=== PATIENT | male | born 1970 | race Caucasian/White ===

== ENCOUNTER 2016-11-18 15:58 | Emergency (ER) | payer MEDICAID ==
[2016-11-18 16:34] LABS: BASOPHILS 0.4 % (0-2); EOSINOPHILS 5.3 % (0-7); HEMATOCRIT 42.4 % (42.0-54.0); HEMOGLOBIN 14.2 g/dL (13.5-17.5); IMMATURE GRANULOCYTES 0.1 % (0-5); LYMPHOCYTES 32.3 % (15-50); MCH 30.1 pg (26.0-34.0); MCHC 33.5 g/dL (31.0-37.0); MCV 89.8 fL (80.0-100.0); MEAN PLATELET VOLUME 10.5 fL (7.4-10.4); MONOCYTES 6.3 % (2-11); NEUTROPHILS 55.6 % (40-80); PLATELET COUNT 201 10x3/uL (130-400); RBC 4.72 10x6/uL (4.20-6.10); RDW 14.8 % (11.5-14.5); WBC 8.4 10x3/uL (4.8-10.8)
[2016-11-18 16:47] LABS: APTT 24.5 SECONDS (22.8-39.4)
[2016-11-18 16:58] LABS: ALBUMIN 3.6 g/dL (3.4-5.0); ANION GAP 14.3 mmol/L (8-16); BILIRUBIN - TOTAL 0.23 mg/dL (0.2-1.3); CALCIUM 8.6 mg/dL (8.5-10.1); CARBON DIOXIDE 23.4 mmol/L (21.0-32.0); CREATININE - SERUM 1.7 mg/dL (0.6-1.3); POTASSIUM - SERUM 3.7 mmol/L (3.5-5.1); PROTEIN - SERUM 6.9 g/dL (6.4-8.2)
== END 2016-11-18 19:30 | disposition home or self-care (01) ==
LOC: D.ER 15:58
PROVIDERS: Nurse Practitioner Acute Care
DX: S81.012A Laceration without foreign body, left knee, initial encounter (principal); W29.3XXA Contact with powered garden and outdoor hand tools and machinery, initial encounter; Y93.89 Activity, other specified; Y92.89 Other specified places as the place of occurrence of the external cause; F17.200 Nicotine dependence, unspecified, uncomplicated; F12.90 Cannabis use, unspecified, uncomplicated

== ENCOUNTER 2016-11-20 11:57 | Emergency (ER) | payer MEDICAID ==
[2016-11-20 12:53] LABS: BASOPHILS 0.1 % (0-2); EOSINOPHILS 3.5 % (0-7); HEMATOCRIT 44.1 % (42.0-54.0); HEMOGLOBIN 14.6 g/dL (13.5-17.5); IMMATURE GRANULOCYTES 0.2 % (0-5); LYMPHOCYTES 26.3 % (15-50); MCH 29.7 pg (26.0-34.0); MCHC 33.1 g/dL (31.0-37.0); MCV 89.8 fL (80.0-100.0); MEAN PLATELET VOLUME 10.6 fL (7.4-10.4); MONOCYTES 9.5 % (2-11); NEUTROPHILS 60.4 % (40-80); PLATELET COUNT 214 10x3/uL (130-400); RBC 4.91 10x6/uL (4.20-6.10); RDW 14.6 % (11.5-14.5); WBC 8.5 10x3/uL (4.8-10.8)
[2016-11-20 12:58] LABS: ALBUMIN 3.6 g/dL (3.4-5.0); ANION GAP 13.4 mmol/L (8-16); BILIRUBIN - TOTAL 0.4 mg/dL (0.2-1.3); CALCIUM 8.8 mg/dL (8.5-10.1); CARBON DIOXIDE 25.7 mmol/L (21.0-32.0); POTASSIUM - SERUM 4.1 mmol/L (3.5-5.1)
[2016-11-20 13:05] LABS: CREATININE - SERUM 1.2 mg/dL (0.6-1.3)
[2016-11-22 10:59] VITALS: BMI 31.2
== END 2016-11-20 15:58 | disposition home or self-care (01) ==
LOC: D.ER 11:57
PROVIDERS: Emergency Medicine
DX: S81.012D Laceration without foreign body, left knee, subsequent encounter (principal); X58.XXXD Exposure to other specified factors, subsequent encounter; Y92.89 Other specified places as the place of occurrence of the external cause; L03.116 Cellulitis of left lower limb; M25.462 Effusion, left knee

== ENCOUNTER 2016-11-21 08:11 | Emergency (ER) | payer MEDICAID ==
[2016-11-22] MEDS ORDERED: NEURONTIN600 MG PO (10:57)
[2016-11-22] MEDS ORDERED: PARAFON FORTE500 MG PO (10:58)
[2016-11-22 10:59] VITALS: BMI 31.2
[2016-11-22] MEDS ORDERED: ELAVIL25 MG PO (10:59)
== END 2016-11-21 11:33 | disposition home or self-care (01) ==
LOC: D.ER 08:11
DX: S81.012D Laceration without foreign body, left knee, subsequent encounter (principal); W29.3XXD Contact with powered garden and outdoor hand tools and machinery, subsequent encounter

== ENCOUNTER 2016-11-22 08:48 | Inpatient (IN) | payer MEDICAID ==
[~2016-11-22] VITALS: Ht 182.9 cm; Wt 104.5 kg
[2016-11-22 09:36] LABS: CALC OSMOLALITY 285 mosm/kg (275-300); CALCIUM 8.9 mg/dL (8.5-10.1); CARBON DIOXIDE 22.4 mmol/L (21.0-32.0); CHLORIDE - SERUM 106 mmol/L (98-107); GLUCOSE 150 mg/dL (74-106); POTASSIUM - SERUM 4.1 mmol/L (3.5-5.1); SODIUM 141 mmol/L (136-145); UREA NITROGEN 17 mg/dL (7-18); eGFR NON AFRICAN AMERICAN 85 mL/min (90-120)
[2016-11-22 10:28] LABS: BASOPHILS 0.3 % (0-2); EOSINOPHILS 4.4 % (0-7); HEMATOCRIT 43.2 % (42.0-54.0); HEMOGLOBIN 14.4 g/dL (13.5-17.5); IMMATURE GRANULOCYTES 0.1 % (0-5); LYMPHOCYTES 24.8 % (15-50); MCH 29.9 pg (26.0-34.0); MCHC 33.3 g/dL (31.0-37.0); MCV 89.8 fL (80.0-100.0); MEAN PLATELET VOLUME 10.5 fL (7.4-10.4); MONOCYTES 8.4 % (2-11); PLATELET COUNT 226 10x3/uL (130-400); RBC 4.81 10x6/uL (4.20-6.10); RDW 14.4 % (11.5-14.5); WBC 7.4 10x3/uL (4.8-10.8)
--- NOTE | 2016-11-22 10:50 | NUR ---
PATIENT RECEIVED TO FLOOR FROM ER VIA WHEELCHAIR. NO SIGNS OF DISTRESS NOTED. TRANSFERRED SELF TO BED. ORIENTED TO ROOM. RATES PAIN 9/10. SUTURES NOTED TO LEFT KNEE. KNEE IS RED, SWOLLEN AND HAS PURULENT DRAINAGE TO INCISION. SIDE RAILS UP X1. BED IN LOW POSITION. CALL LIGHT IN REACH.
[2016-11-22] MEDS ORDERED: NEURONTIN600 MG PO (10:57)
[2016-11-22] MEDS ORDERED: PARAFON FORTE500 MG PO (10:58)
[2016-11-22 10:59] VITALS: BP 131/94; Ht 182.9 cm; Wt 104.5 kg
[2016-11-22] MEDS ORDERED: ELAVIL25 MG PO (10:59)
--- NOTE | 2016-11-22 11:10 | NUR ---
PERCOCET ADMINISTERED FOR PRN ORDER FOR PAIN 01/24. DENIES FURTHER NEEDS. SIDE RAILS UP X1. BED IN LOW POSITION. CALL LIGHT IN REACH.
--- NOTE | 2016-11-22 13:15 | NUR ---
PATIENT OFF FLOOR VIA WHEELCHAIR WITH FAMILY
--- NOTE | 2016-11-22 13:55 | NUR ---
PATIENT BACK TO ROOM
--- NOTE | 2016-11-22 16:00 | NUR ---
CONSENTS OBTAINED FOR ORDERED PROCEDURE. PATIENT DENIES NEEDS. FAMILY PRESENT. CALL LIGHT IN REACH.
[2016-11-22 19:00] VITALS: BP 138/82
--- NOTE | 2016-11-22 19:25 | NUR ---
PATIENT RESTING IN BED WITH GUEST AT BEDSIDE. HOOKED PATIENT UP TO HIS ADULT MINISTRIES DIRECTOR AND BROUGHT HIM A DRINK PER HIS REQUEST. BED IN LOWEST POSITION AND CALL LIGHT WITHIN REACH. ENCOURAGED THE PATIENT TO CALL IF HE HAS FURTHER NEEDS.
[2016-11-23] VITALS (11 sets, daily range): BP systolic 111–153; BP diastolic 73–106
--- NOTE | 2016-11-23 07:50 | NUR ---
PATIENT RECEIVED ALERT IN BED WITH FAMILY PRESENT. NO SIGNS OF DISTRESS NOTED. DENIES NEEDS. BED IN LOW POSITION. CALL LIGHT IN REACH.
--- NOTE | 2016-11-23 08:50 | NUR ---
ALERT IN BED WITH FAMILY PRESENT. PERCOCET ADMINISTERED PER PRN ORDER. ANTICIPATING SURGERY TODAY. BED IN LOW POSITION. CALL LIGHT IN REACH.
--- NOTE | 2016-11-23 10:15 | NUR ---
PATIENT OFF FLOOR WITH FAMILY AT THIS TIME.
--- NOTE | 2016-11-23 10:35 | NUR ---
ALERT IN BED. NO SIGNS OF DISTRESS NOTED. LEFT MIDLINE IN PLACE. FLUSHES EASY. IVF AND GROUND HAND CONNECTED. INFUSING WITHOUT DIFFICULTY. RATES PAIN 10/10. GROUND HAND BUTTON IN REACH. IV ABX INITIATED. FAMILY AT BEDSIDE. ENCOURAGED PATIENT TO STAY OR ON FLOOR SINCE HE WAS SCHEDULED FOR SURGERY. STATES UNDERSTANDING. CALL LIGHT IN REACH. BED IN LOW POSITION.
--- NOTE | 2016-11-23 12:25 | NUR ---
PATIENT OFF FLOOR TO SURGERY VIA BED
--- NOTE | 2016-11-23 14:25 | NUR ---
PATIENT RECEIVED TO FLOOR FROM PACU VIA BED. PATIENT CONNECTED TO IV PUMP WITH DILAUDID PRINCIPAL CLERK. PRINCIPAL CLERK BUTTON IN REACH. FAMILY PRESENT. VITAL SIGNS STABLE. WOUND VAC INTACT TO LEFT KNEE. SIDE RAILS UP X2. BED IN LOW POSITION. CALL LIGHT IN REACH.
[2016-11-23 15:16] LABS: PROTEIN - BODY FLUID 3.4 G/DL
[2016-11-23 17:40] LABS: LYMPH - BF 73 %; MACROPHAGES BF 4 %; MESOTHELIALS BF 1 %; NEUT - BF 22 %
--- NOTE | 2016-11-23 17:45 | NUR ---
ALERT IN BED RESTING QUIETLY. NO SIGNS OF DISTRESS NOTED. TOLERATED DINNER. SIDE RAILS UP X2. BED IN LOW POSITION. CALL LIGHT AND NETWORK OPERATIONS TECHNICIAN BUTTON IN REACH.
[2016-11-24] VITALS: BP 116/55
[2016-11-24 04:00] VITALS: BP 122/66
--- NOTE | 2016-11-24 07:30 | NUR ---
RECIEVED ON WALKING ROUNDS TRANSFER OF CARE PER VERBAL REPORT PT AWAKE AND LAERT ORINETED X 3 LUNGS SERAFIN CISNEROS HAS DRESSING NOTED TO RIGHT KNEE FROM I&D YESTERDAY FROM [facility] WOUND FAILED TO HEAL. PT GOING OUTSIDE TO SMOKE ALMOST CONSTANTLY. REQUESTING TO GO HOME WILL SPEAK TO DR ABOUT POSSIBLE DISCHARGE.
[2016-11-24 08:08] VITALS: BP 94/63
[2016-11-24] MEDS ORDERED: HYDROCODONE-APA1 TAB PO (08:46)
--- NOTE | 2016-11-24 09:17 | NUR ---
* Is the patient Alert and Oriented? Yes 0 * How many steps to enter\\exit or inside your home? 0 0 * PCP [facility] "[place]" 0 * Pharmacy [facility] IN [place] 0 * Preadmission Environment Home with Family 0 * ADLs Independent 0 * Equipment None 0 * List name and contact numbers for known caregivers / representatives who currently or will assist patient after discharge: DEONNA DIAZ (MOTHER) [phone] 0 * Community resources currently utilized None 0 * Additional services required to return to the preadmission environment? Yes 0 * Can the patient safely return to the preadmission environment? Yes 0 * Has this patient been hospitalized within the prior 30 days at any hospital? No 0 Grand Total: 0 Patient Name: CHRISTOPHER ALLEN Admission Status: ER Accout number: [id number] Admission Date: 11-22-2016 : 1970 Admission Diagnosis:INFECTION FOLLOWING A PROCEDURE, INITIAL ENCOUNTER Attending: SHAREE Current LOS: 2 Anticipated DC Date: 11-24-2016 Planned Disposition: Home with Home Health Primary Insurance: [facility] [employer] OPTIONS [facility] Discharge Planning Comments: CM met with patient and his mother Deonna Diaz, to assess discharge planning needs. Patient states that he lives independently with his mom. There are no steps inside his home. He plans to discharge today with his mom to drive him home. Patient will be set up with crutches with [facility] prior to discharge and a wound vac from [facility]. HH from [facility] signed. CM will continue to follow and assist on discharge planning needs. PCP: [facility] ([place]) Deonna Haromartina ([phone]) Pharmacy: [facility] in [place] Tutor: Gianna Barbosa
[2016-11-24 12:00] VITALS: BP 140/87
--- NOTE | 2016-11-24 13:26 | NUR ---
PT HAS SPENT VERY LITTLE TIME IN ROOM MOSTLY OUTSIDE WITH WOUND VAC ATTACHED AND OPERATING NOT GIVEN HABITROL PATCH PT IS SMOKING FREQUENTLY
--- NOTE | 2016-11-24 16:07 | NUR ---
GINA confirmed with Michela at [facility] that he would be seen tomorrow. [employer] wound vac paperwork given and faxed and placed in chart. Crutches were delivered. Patient family will be taking patient home in personal car.
[2016-11-24] MEDS ORDERED: BACTRIM DS TABL1 TAB PO (16:17)
[2016-11-24 16:32] VITALS: BP 108/55
--- NOTE | 2016-11-24 17:00 | NUR ---
PT WOUND VAC CHANGED OVER TO PROTABLE HOME VAC AND INSTRUCTIONS GIVEN EXPRESSED UNDERSTANDING MIDLINE PULLED FROM 15 CM INTACT TOLERATED WELL PRESSURE HELD X 5 MIN NO BLEEDING NOTED DRESSED WITH 4X4 AND TAPE. PT GIVEN DISCHARGE INSTRUCTIONS AND INSISTED ON AMBULATING WITH CRUTCHES OFFERED WHEELCHAIR AND ENCOURAGED TO GO VIA WHEELCHAIR PT REFUSED.LEFT VIA AMBULATORY WITH CRUTCHES AND FAMILY BEGAN TO BLEED IN ELEVATOR ON WAY DOWNSTAIRS. BACK UP TO REDRESS AND PRESSURE HELD AGAIN X 5 MIN NO BLEEDING NOTED NEW DRESSING APPLIED WITH 4X4 AND REINFORCED WITH KERLIX AND TAPE.
== END 2016-11-24 17:47 | disposition home or self-care (01) | DRG 858 ==
LOC: D.ER 08:48 → D.MS 10:03
PROVIDERS: Emergency Medicine; ADMIT Orthopaedic Surgery
PROC: 0M9P0ZZ Drainage of Left Knee Bursa and Ligament, Open Approach (ICD-10-PCS; 2016-11-23)
PROC: B54NZZA Ultrasonography of Left Upper Extremity Veins, Guidance (ICD-10-PCS; 2016-11-23)
PROC: 05HC33Z Insertion of Infusion Device into Left Basilic Vein, Percutaneous Approach (ICD-10-PCS; principal; 2016-11-23 12:45)
DX: T81.4XXA Infection following a procedure, initial encounter (principal); M71.162 Other infective bursitis, left knee; F12.90 Cannabis use, unspecified, uncomplicated; F17.200 Nicotine dependence, unspecified, uncomplicated

== ENCOUNTER 2017-01-07 18:20 | Emergency (ER) | payer MEDICAID ==
[2016-11-22 10:59] VITALS: BMI 31.2
[~2017-01-07 18:20] MED LIST: BACTRIM DS TABL1 TAB PO; ELAVIL25 MG PO; HYDROCODONE-APA1 TAB PO; NEURONTIN600 MG PO; PARAFON FORTE500 MG PO
[2017-01-07 19:08] LABS: APPEARANCE CLEAR (CLEAR); BILIRUBIN NEGATIVE (NEGATIVE); COLOR YELLOW (YELLOW); GLUCOSE NEGATIVE (NEGATIVE); KETONE NEGATIVE (NEGATIVE); LEUKOCYTE ESTERASE NEGATIVE (NEGATIVE); NITRITE NEGATIVE (NEGATIVE); PROTEIN NEGATIVE (NEGATIVE); SPECIFIC GRAVITY 1.015 (1.005-1.020); UROBILINOGEN NORMAL (NORMAL)
== END 2017-01-07 20:27 | disposition left against medical advice (07) ==
LOC: D.ER 18:20
PROVIDERS: Emergency Medicine
DX: R10.9 Unspecified abdominal pain (principal)

== ENCOUNTER 2017-05-04 14:18 | Emergency (ER) | payer MEDICAID ==
[2016-11-22 10:59] VITALS: BMI 31.2
== END 2017-05-04 16:03 | disposition home or self-care (01) ==
LOC: D.ER 14:18
DX: K04.7 Periapical abscess without sinus (principal); K08.89 Other specified disorders of teeth and supporting structures

== ENCOUNTER 2017-07-15 11:20 | Emergency (ER) | payer MEDICAID ==
[2016-11-22 10:59] VITALS: BMI 31.2
== END 2017-07-15 14:12 | disposition home or self-care (01) ==
LOC: D.ER 11:20
DX: S01.111A Laceration without foreign body of right eyelid and periocular area, initial encounter (principal); W29.3XXA Contact with powered garden and outdoor hand tools and machinery, initial encounter; Y93.89 Activity, other specified; Y92.019 Unspecified place in single-family (private) house as the place of occurrence of the external cause

== ENCOUNTER 2017-09-14 13:52 | Emergency (ER) | payer MEDICAID ==
[2016-11-22 10:59] VITALS: BMI 31.2
== END 2017-09-14 15:35 | disposition home or self-care (01) ==
LOC: D.ER 13:52
DX: S05.02XA Injury of conjunctiva and corneal abrasion without foreign body, left eye, initial encounter (principal); X58.XXXA Exposure to other specified factors, initial encounter; Y93.89 Activity, other specified; Y92.019 Unspecified place in single-family (private) house as the place of occurrence of the external cause

== ENCOUNTER 2019-05-05 12:43 | Emergency (ER) | payer MEDICAID ==
[~2019-05-05] VITALS: Ht 182.9 cm; Wt 93.2 kg
[2019-05-05 12:50] VITALS: Ht 182.9 cm; Wt 93.2 kg
[2019-05-05 13:30] LABS: APPEARANCE CLEAR (CLEAR); BILIRUBIN NEGATIVE (NEGATIVE); COLOR YELLOW (YELLOW); GLUCOSE NEGATIVE (NEGATIVE); KETONE NEGATIVE (NEGATIVE); NITRITE NEGATIVE (NEGATIVE); PROTEIN NEGATIVE (NEGATIVE); SPECIFIC GRAVITY 1.015 (1.005-1.020); UROBILINOGEN NORMAL (NORMAL)
[2019-05-05 13:40] LABS: BASOPHILS 0.3 % (0-2); EOSINOPHILS 6.8 % (0-7); HEMATOCRIT 43.1 % (42.0-54.0); HEMOGLOBIN 14.3 g/dL (13.5-17.5); IMMATURE GRANULOCYTES 0.1 % (0-5); LYMPHOCYTES 27.4 % (15-50); MCH 31.2 pg (26.0-34.0); MCHC 33.2 g/dL (31.0-37.0); MCV 94.1 fL (80.0-100.0); MONOCYTES 6.6 % (2-11); NEUTROPHILS 58.8 % (40-80); PLATELET COUNT 238 10x3/uL (130-400); RBC 4.58 10x6/uL (4.20-6.10); WBC 7.7 10x3/uL (4.8-10.8)
[2019-05-05 13:42] LABS: CALC OSMOLALITY 288 mosm/kg (275-300); CALCIUM 8.6 mg/dL (8.5-10.1); CARBON DIOXIDE 28.3 mmol/L (21.0-32.0); CHLORIDE - SERUM 107 mmol/L (98-107); GLUCOSE 106 mg/dL (74-106); SODIUM 144 mmol/L (136-145); UREA NITROGEN 18 mg/dL (7-18); eGFR NON AFRICAN AMERICAN 84 mL/min (90-120)
[2019-05-05 13:50] LABS: ALBUMIN 3.5 g/dL (3.4-5.0); ALKALINE PHOSPHATASE 65 U/L (46-116); ALT (SGPT) 27 U/L (10-68); BILIRUBIN - TOTAL 0.33 mg/dL (0.2-1.3); PROTEIN - SERUM 6.9 g/dL (6.4-8.2)
[2019-05-05 14:41] VITALS: BP 109/49
[2019-05-05] MEDS ORDERED: ACETAMINOPHEN500 M1 PO (14:55)
[2019-05-05] MEDS ORDERED: CYCLOBENZAPRINE10 MG PO (14:55)
[2019-05-05] MEDS ORDERED: IBUPROFEN800 MG PO (14:55)
== END 2019-05-05 15:18 | disposition home or self-care (01) ==
LOC: D.ER 12:43
PROVIDERS: Family Medicine
DX: R10.9 Unspecified abdominal pain (principal)

== ENCOUNTER 2019-05-07 07:52 | Emergency (ER) | payer MEDICAID ==
[~2019-05-07] VITALS: Ht 182.9 cm; Wt 93.2 kg
[~2019-05-07 07:52] MED LIST changes: +ACETAMINOPHEN500 M1 PO; +CYCLOBENZAPRINE10 MG PO; +IBUPROFEN800 MG PO
[2019-05-07 07:54] VITALS: Ht 182.9 cm; Wt 93.2 kg
[2019-05-07] MEDS ORDERED: PERCOCET 7.5/321 TAB PO (10:12)
[2019-05-07 10:19] VITALS: BP 142/84
== END 2019-05-07 10:19 | disposition home or self-care (01) ==
LOC: D.ER 07:52
DX: M51.36 Other intervertebral disc degeneration, lumbar region (principal)

== ENCOUNTER 2019-10-19 16:11 | Inpatient (IN) | payer MEDICAID ==
[~2019-10-19] VITALS: Ht 198.1 cm; Wt 103.0 kg
[~2019-10-19 16:11] MED LIST changes: +PERCOCET 7.5/321 TAB PO
[2019-11-01] MEDS ORDERED: KLONOPIN1 MG PO (08:48)
[2019-11-01] MEDS ORDERED: AMBIEN10 MG PO (08:48)
[2019-11-01] MEDS ORDERED: HYDROCODON-ACE1 EAC2 PO (08:48)
[2019-11-03] VITALS (17 sets, daily range): BP systolic 100–141; BP diastolic 51–81; BMI 30.1
--- NOTE | 2019-11-03 17:48 | NUR ---
TRANSFER OF CARE TO TAN IBRAHIM RN. REPORT GIVEN.
--- NOTE | 2019-11-03 17:51 | NUR ---
[id number] RECEIVED REPORT FROM Preston ARCINIEGA RN. TAKING OVER PATIENT CARE.
--- NOTE | 2019-11-03 18:06 | NUR ---
PT RECEIVED FROM OR AT THIS TIME. VSS. RESTING COMFORTABLY.
--- NOTE | 2019-11-03 19:40 | NUR ---
SANDWICH TRAY PROVIDED AND BARNEY RAMSEY ON REQUEST, PT DENIES NAUSEA, HOB ELEVATED, SR UP X 2, CALL LIGHT IN REACH.
--- NOTE | 2019-11-03 19:40 | NUR ---
REPORT REC'D AND CARE ASSUMED, REC'D PT AWAKE AND ALERT, O2 @ 2LITERS, PT WANTING SOMETHING TO EAT, RIGHT HAND PIV WITH 1/2NS @ 50CC/HR, PT DENIES NUMBNESS OR TINGLING TO EXTREMETIES, WILLIE AGOSTO PATENT DRAINING CONCENTRATED URINE, PPP, BILAT SCDS ON, PT EATING ICE CHIPS, DENIE NAUSEA AT THIS TIME, INFORMED PT WOULD WAIT A LITTLE LONGER TO MAKE SURE HE WAS NOT GOING TO GET SICK AT HIS STOMACH AND THEN WOULD BRING HIM SOMETHING TO EAT, PT VERBALIZES UNDERSTANDING.
--- NOTE | 2019-11-03 20:15 | NUR ---
PIV ALARMING OCCLUSION, PT SITTING UP IN BED EATING SANDWICH, REQUESTING SOUP, STATES "MY THROAT HURTS", RIGHT HAND PIV PULLED PARTIALLY OUT AND KINKED, IV FLUIDS PLACED ON HOLD.
--- NOTE | 2019-11-03 21:15 | NUR ---
PT ASSISTED X 1 TO BSC, GAIT STEADY, DENIES DIZZINESS OR NAUSEA UPON RISING, CALL LIGHT IN REACH.
--- NOTE | 2019-11-03 21:30 | NUR ---
DILAUDID CIRCUS PERFORMER SET UP FOR PATIENT, 0.3MG [id number] PER ORDER, EVENING MEDS GIVEN, PT REQUESTING ICE CREAM, ICE CREAM PROVIDED, PT DENIES FURTHER NEEDS.
--- NOTE | 2019-11-03 21:45 | NUR ---
PT UNABLE TO HAVE BM, ASSISTED BACK TO BED WITHOUT DIFFICULTY, PT COMPLAINS OF PAIN, RATING "8" ON 0-10 PAIN SCALE, RIGHT HAND PIV DC'D, 20 GAUGE PLACED TO RIGHT FOREARM X 1 STICK, 1/2NS PLACED TO NEW SITE, PT TOLERATED WELL, REQUESTING ANOTHER COLA AND ICE CREAM, BOTH PROVIDED AT THIS TIME, CALL LIGHT IN REACH, BED IN LOW POSITION, VISIBLE TO NURSES STATION.
--- NOTE | 2019-11-03 23:30 | NUR ---
REASSESSMENT COMPELTED, PT RESTING IN BED EYES CLOSED, VSS, PT USING FLOWER GRADER FOR DISCOMFORT, WILL MONITOR CLOSELY FOR CHANGES.
[2019-11-04] VITALS (20 sets, daily range): BP systolic 106–178; BP diastolic 43–97; Ht 198.1 cm; Wt 103.0 kg
--- NOTE | 2019-11-04 01:30 | NUR ---
PT AWAKE, REQUESING NORCO FOR BREAKTHROUGH PAIN, PT SCRATCHING, STATES " IT IS THE MEDICINE", NORCO 2 PROVIDED ORDERED, PT DENIES FURTHER NEEDS.
--- NOTE | 2019-11-04 03:30 | NUR ---
REASSESSMENT COMPLETED, PT STILL UNABLE TO GO BACK TO SLEEP, GREGGON DARIEN CORLEY AND KENDRICK SALAZAR PROVIDED ON REQUEST, PT COMPLAINS OF "A LITTLE SORE", PT CONTINUES USING DILAUDID SUPERVISOR PACKING 0.3MG, WILL CONT TO MONITOR FOR CHANGES.
--- NOTE | 2019-11-04 06:00 | NUR ---
PT RESTING QUIETLY WATCHING TV, VSS, DENIES NEEDS AT THIS TIME
--- NOTE | 2019-11-04 06:55 | NUR ---
DR. BLANC CALLED TO CHECK ON PATIENT, UPDATE PROVIDED, NEW ORDERS REC'D ,WILL REPORT TO ONCOMING
--- NOTE | 2019-11-04 18:22 | NUR ---
0715-RECIEVED PT PER FLOW SHEET-ASKING WHEN BEING TRANSFERED-INFORMED PT DR BLANC WILL BE ROUNDING IN AFTERNOON HOURS-REQUESTED TO STAND UP AND WALK TO RESTROOM-INFORMED NOT AVAILABLE-AND NO STANDING UNTIL LUMBAR CORSET IS PLACED ON PT [employer] CALLED AND NOTIFIED 3009-WAYNE WITH [employer] AT BEDSIDE AND PT FITTED WITH LUMBAR CORSET-PADDED DRESSING PLACED
--- NOTE | 2019-11-04 18:28 | NUR ---
1330-AMBULATED WITH PHYSICAL THERAPY-TOLERATED WELL 1500-PT REQUESTING THAT DR BLANC BE CALLED SO HE CAN TRANSFER TO WITH BATHROOM-ANGRY 1730-DR BLANC AT BEDSIDE-ORDERS RECIEVED AND NOTED-R IV LOCKED AND TUCKPOINTER CLEANER CAULKER DISCONTINUED
--- NOTE | 2019-11-04 18:29 | NUR ---
1120-TAPIA CATH DISCONTINUED ORDERED
--- NOTE | 2019-11-04 21:00 | NUR ---
NO VISITORS PRESENT AT THIS TIME, APPLE JUICE PROVIDED PER REQUEST, DENIES ANY OTHER NEEDS.
--- NOTE | 2019-11-05 01:40 | NUR ---
PT RESTING IN BED WITH EYES CLOSED, BREATHING EVEN AND UNLABORED, CONT POC.
[2019-11-05 05:30] VITALS: BP 157/93
--- NOTE | 2019-11-05 05:48 | NUR ---
PT C/O BACK PAIN 11/23 ON VPS, PRN PO HYDROCODONE AND ROBAXIN ADMINISTERED PER MD ORDER/PT REQUEST.
[2019-11-05] MEDS ORDERED: HYDROCODON-ACE1 EA10 PO (11:43)
--- NOTE | 2019-11-05 13:31 | NUR ---
1130-DR BLANC AT BEDSIDE-AMBULATING EASILY-VERBALLY APPROPRIATE-SURGICAL INCISION INTACT-DIRECTED TO PUT PADDING BETWEEN INCISION AND WAIST BAND-CURRENTLY PADDED DRESSING IN PLACE-R PERIPH IV D/C'D-PRESCRIPTION GIVEN TO PT AND DISCHARGE DIRECTIONS-OXYCODONE 10MG PO GIVEN FOR RATING 6/10-ASSISTED TO WHEELCHAIR-DISCHARGED HOME WITH MOTHER-FATIMAH
== END 2019-11-05 13:35 | disposition home or self-care (01) | DRG 460 ==
LOC: D.OPS 11-01 08:33 → D.SDCHOLD 11-03 09:40 → D.OPS 11-03 11:30 → D.PAN 11-03 11:30 → EDSTATUS 11-03 11:30 → D.ICU 11-03 17:22
PROVIDERS: ADMIT Neurological Surgery; ATTEND Neurological Surgery
PROC: 0SG30J1 Fusion of Lumbosacral Joint with Synthetic Substitute, Posterior Approach, Posterior Column, Open Approach (ICD-10-PCS; principal; 2019-11-03 11:30)
DX: M54.16 Radiculopathy, lumbar region (principal); I10 Essential (primary) hypertension; F41.8 Other specified anxiety disorders; F17.200 Nicotine dependence, unspecified, uncomplicated; M51.36 Other intervertebral disc degeneration, lumbar region; M48.061 Spinal stenosis, lumbar region without neurogenic claudication

== ENCOUNTER → 2019-11-01 11:25 | Outpatient (CLI) | payer BC ==
[2019-05-07 07:54] VITALS: BMI 27.8
[~2019-11-01 11:25] MED LIST changes: +AMBIEN10 MG PO; +HYDROCODON-ACE1 EAC2 PO; +KLONOPIN1 MG PO
== END | disposition home or self-care (01) ==
LOC: D.LABREF 11:25
PROVIDERS: ATTEND Neurological Surgery
DX: Z11.59 Encounter for screening for other viral diseases (principal)